=== PATIENT | male | born 1955 | race Caucasian/White ===

== ENCOUNTER 2022-04-30 01:26 | Emergency (ER) | payer SELFPAY ==
[~2022-04-30] VITALS: Ht 190.5 cm; Wt 100.6 kg
[2022-04-30 01:53] VITALS: BP 158/95
[2022-04-30 03:13] LABS: CHLORIDE 109 mEq/L (98-107)
[2022-04-30 03:20] LABS: BASOPHILS % 0.5 % (0.0-2.0); EOSINOPHILS % 1.4 % (0.0-5.0); ETHANOL BLOOD < 10 mg/dL; HEMATOCRIT. 35.3 % (42.0-52.0); LYMPHOCYTES % 31.3 % (20.0-50.0); MEAN CORPUSCULAR HEMOGLOBIN 30.9 pg (28.0-32.0); MEAN CORPUSCULAR VOLUME 90.8 fL (80.0-94.0); MEAN PLATELET VOLUME 8.4 fl (7.4-10.4); NEUTROPHILS % 57.8 % (40.0-76.0); PLATELET 197 x1000/uL (130-400); RED BLOOD CELL COUNT 3.89 mill/uL (4.7-6.1); RED CELL DISTRIBUTION WIDTH 16.5 % (11.6-14.6)
== END 2022-04-30 03:03 | disposition left against medical advice (07) ==
LOC: ER 01:26
DX: Z53.21 Procedure and treatment not carried out due to patient leaving prior to being seen by health care provider (principal)
CPT/HCPCS: 36415; 80053; 80307; 80320; 80329; 85025; 99283; G0480

== ENCOUNTER 2022-04-30 04:32 | Emergency (ER) | payer SELFPAY ==
[~2022-04-30] VITALS: Ht 190.5 cm; Wt 100.6 kg
[2022-04-30 04:42] VITALS: BP 151/88
== END 2022-04-30 06:14 | disposition home or self-care (01) ==
LOC: ER 04:32
DX: F23 Brief psychotic disorder (principal); Z88.0 Allergy status to penicillin
CPT/HCPCS: 99281